=== PATIENT | male | born 1950 | race Caucasian/White ===

== ENCOUNTER 2016-06-16 20:11 | Emergency (ER) | payer OTHER ==
[~2016-06-16] VITALS: Ht 182.9 cm; Wt 107.5 kg
[2016-06-16 20:30] LABS: BASOPHIL # 0.1 10^3/uL (0.0-0.1); BASOPHIL % 0.3 % (0.0-0.2); EOSINOPHIL # 0.2 10^3/uL (0.0-0.2); HEMATOCRIT 42.4 % (37.0-53.0); HEMOGLOBIN 14.5 g/dL (13.9-16.3); LYMPHOCYTES # 2.6 10^3/uL (1.0-4.8); LYMPHOCYTES % 14.5 % (24.0-44.0); MEAN CELL HGB 34.5 pg (26-34); MEAN CELL HGB CONCENTRATION 34.2 g/dL (33-37); MEAN PLATELET VOLUME 9.8 fL (7.8-11.0); MONOCYTES # 1.5 10^3/uL (0.3-0.8); MONOCYTES % 8.1 % (5.0-12.0); NEUTROPHIL # 13.9 10^3/uL (1.8-7.7); NEUTROPHILS % 75.8 % (41.0-85.0); PLATELET COUNT 315 10^3/uL (150-400); RED CELL DISTRIBUTION WIDTH 12.9 % (11.5-14.5); WHITE BLOOD CELL 18.3 10^3/uL (4.5-11.0)
--- NOTE | 2016-06-16 20:51 | DIREP ---
PROCEDURE:CHEST 1 VIEW COMPARISON:None. INDICATIONS:syncope FINDINGS: LUNGS/PLEURA:No significant pulmonary parenchymal abnormalities. No effusions. VASCULATURE:Normal. Unremarkable pulmonary vasculature. CARDIAC:Normal. No cardiac silhouette abnormality or cardiomegaly. MEDIASTINUM:Normal. No visible mass or adenopathy. BONES:Moderate degenerative changes are noted in both acromioclavicular joints. OTHER:Negative. CONCLUSION:No active or acute cardiopulmonary disease is seen. Dictated by: Christoph Garcia M.D. on 06/16/2016 at 08:50 PM
[2016-06-16 20:56] LABS: LYMPHOCYTE 10 % (25-36); MONOCYTE 2 % (3-9); SEGMENTED NEUTROPHILS 88 % (31-76)
[2016-06-16 20:57] LABS: ALANINE AMINOTRANSFERASE 29 U/L (12-78); ALKALINE PHOSPHATASE 78 U/L (50-136); ASPARTATE AMINO TRANSFERASE 22 U/L (0-35); CALCIUM 9.1 mg/dL (8.4-10.5); CARBON DIOXIDE 23.7 mmol/L (20.0-32); GLUCOSE 168 mg/dL (70-110)
--- NOTE | 2016-06-16 23:13 | ER.PDOC ---
General Chief Complaint: Syncope Stated Complaint: SYNCOPE Time seen by MD: 23:11 Source: patient History of Present Illness Initial Comments passed out after getting out of his truck. hasn't eaten all day. felt weak kneed. assisted him to the ground Timing/Prior Episodes: no prior history Symptoms Prior to Episode: none Precipitating Factors: standing Location of Injury: None Current Symptoms: back to normal Prior symptoms/Treatment: Similar symptoms previous Allergies: Coded Allergies: No Known Allergies (Unverified , 06/16/16) Past Medical History Medical History: hypertension Surgical History: knee (In March) Social History Smoking: less than 1 pack/day Alcohol Use: none Drug Use: none Review of Systems Constitutional: no symptoms reported EENTM: no symptoms reported Respiratory: no symptoms reported Cardiovascular: no symptoms reported Gastrointestinal: no symptoms reported Genitourinary: no symptoms reported Musculoskeletal: no symptoms reported Skin: no symptoms reported Psychiatric/Neurological: no symptoms reported Physical Exam General Appearance: No Apparent Distress, WD/WN HEENT: PERRL/EOMI Neck: Non-Tender Cardiovascular/Respiratory: Regular Rate, Rhythm, No M/R/G, Normal Peripheral Pulses Gastrointestinal: Normal Bowel Sounds Extremities: Normal Range of Motion, Non-Tender, Normal Inspection Psychiatric: Alert Cranial Nerves: Normal Hearing, Normal Speech Coordination/Gait: Normal Finger to Nose Motor/Sensory: No Motor Deficit, No Sensory Deficit Skin: Normal Color Results/Orders Results/Orders Laboratory Tests Test 06/16/16 20:24 White Blood Count 18.310^3/uL (4.5-11.0) Red Blood Count 4.2010^6/uL (4.50-5.90) Hemoglobin 14.5g/dL (13.9-16.3) Hematocrit 42.4% (37.0-53.0) Mean Corpuscular Volume 101.0fL (78-100) Mean Corpuscular Hemoglobin 34.5pg (26-34) Mean Corpuscular Hemoglobin Concent 34.2g/dL (33-37) Red Cell Distribution Width 12.9% (11.5-14.5) Platelet Count 52223^3/uL (150-400) Mean Platelet Volume 9.8fL (7.8-11.0) Neutrophils (%) (Auto) 75.8% (41.0-85.0) Lymphocytes (%) (Auto) 14.5% (24.0-44.0) Monocytes (%) (Auto) 8.1% (5.0-12.0) Neutrophils # (Auto) 13.910^3/uL (1.8-7.7) Lymphocytes # (Auto) 2.610^3/uL (1.0-4.8) Monocytes # (Auto) 1.510^3/uL (0.3-0.8) Absolute Immature Granulocyte (auto 0.0510^3 u/L (0-2) Differential Total Cells Counted 100#CELLS Eosinophils % 1.0% (0.0-5.0) Basophils % 0.3% (0.0-0.2) Segmented Neutrophils 88% (31-76) Lymphocytes 10% (25-36) Monocytes 2% (3-9) Basophils # 0.110^3/uL (0.0-0.1) Platelet Estimate Adequate Platelet Morphology Normal Eosinophil Count 0.210^3/uL (0.0-0.2) Prothrombin Time 11.0SEC (9.8-11.9) Prothromb Time International Ratio 1.0 Activated Partial Thromboplast Time 21.7SEC (24.67-30.72) D-Dimer 1.14mg/L (0.19-0.4) Sodium Level 143mmol/L (132-145) Potassium Level 3.6mmol/L (3.6-5.2) Chloride Level 106.0mmol/L (96-109) Carbon Dioxide Level 23.7mmol/L (20.0-32) Anion Gap 16.9 Blood Urea Nitrogen 20mg/dL (7-18) Creatinine 1.38mg/dL (0.59-1.40) Estimated GFR () [id number] BUN/Creatinine Ratio 14.0 Glucose Level 168mg/dL (70-110) Calculated Osmolality 302.1 Calcium Level 9.1mg/dL (8.4-10.5) Total Bilirubin 0.3mg/dL (0.2-1.0) Aspartate Amino Transf (AST/SGOT) 22U/L (0-35) Alanine Aminotransferase (ALT/SGPT) 29U/L (12-78) Alkaline Phosphatase 78U/L (50-136) Total Creatine Kinase 177U/L (39-308) Creatine Kinase MB 0.9ng/mL (0.5-3.6) Troponin I < 0.02ng/mL (0.00-0.05) Pro-B-Type Natriuretic Peptide 43pg/mL (0-125) Total Protein 7.3g/dL (6.4-8.2) Albumin 3.7g/dL (3.4-5.0) Globulin 3.6 Percent Immature Gran (Cell Imm) 0.30% (0.00-0.50) Helicobacter pylori Screen Positive (NEGATIVE) Progress Progress discussed options. I recommended admission for observation, but patient would prefer to go. discussed risks and benefits. pt knows he needs to follow up and seek further care if sx return/change. EKG/XRAY/CT/US EKG: NSR (rate 82, nml axis, no ectopy), no ST T wave changes Departure Time of Disposition: 23:27 Disposition: 01 HOME, SELF-CARE Impression: Primary Impression: Syncope and collapse Condition: Improved Referrals: GUADALUPE YU MD (PCP) PRIMARY CARE PROVIDER GUADALUPE YU MD June 16, 2016 23:13
--- NOTE | 2016-06-16 23:14 | DIREP ---
PROCEDURE:CT PULMONARY ANGIOGRAM TECHNIQUE:Following the intravenous administration of contrast material, axial cuts were obtained through the chest. Multiplanar / 3-D reconstructions are provided. Suboptimal pulmonary arterial contrast opacification was achieved. The images were viewed at lung and soft tissue settings. COMPARISON:[facility], , XRAY CHEST SINGLE VW, 06/16/2016, 08:06 PM. INDICATIONS:syncope FINDINGS: PULMONARY ARTERIES:The study is limited and compromised secondary to suboptimal pulmonary arterial contrast opacification. No large or definite pulmonary emboli or filling defects are seen bilaterally. LUNGS:Minimal dependent subsegmental atelectasis is seen in the right lung base. No infiltrates are seen. CARDIAC:Normal size heart and normal pulmonary vascularity. THYROID:Normal. THORACIC AORTA:Normal. MEDIASTINUM:A small 9 mm pretracheal node is incidentally noted. PLEURA:Normal. BONES:Normal. OTHER:A 3.4 cm hypodense right adrenal lesion is seen with CT density measurements consistent with an adrenal adenoma. CONCLUSION: 1. Limited and compromised study secondary to suboptimal pulmonary arterial contrast opacification. No large or definite pulmonary emboli are seen bilaterally. 2. Minimal dependent subsegmental atelectasis is seen in the right lung base without infiltrate. 3. There is a 3.4 cm hypodense right adrenal lesion consistent with an adrenal adenoma. Dictated by: Christoph Garcia M.D. On 06/16/2016 at 11:05 PM
== END 2016-06-16 23:43 | disposition home or self-care (01) ==
LOC: ER 20:11
DX: R55 Syncope and collapse (principal); I10 Essential (primary) hypertension; F17.200 Nicotine dependence, unspecified, uncomplicated
CPT/HCPCS: 36415; 71010; 71275; 80053; 82550; 83880; 84484; 85007; 85025; 85379; 85610; 85730; 86677; 93005; 99285; Q9967